=== PATIENT | male | born 1960 | race Two or more races ===

== ENCOUNTER 2024-03-17 22:18 | Emergency (ER) | payer OTHER ==
[~2024-03-17] VITALS: Ht 182.9 cm; Wt 105.0 kg
[2024-03-17] MEDS: ALBUTEROL SULF 2.5 MG/0.5ML(0.5%) NEB SOLN NEB ONE (22:30)
--- NOTE | 2024-03-17 22:30 | ECG ---
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
--- NOTE | 2024-03-17 22:35 | ED.PDOC ---
History of Present Illness HPI Comments 63 y/o M, with a Hx of HTN and obesity, is BIBA for c/o shortness of breath, today. Per EMS report, patient endorses on unprovoked onset of persisting difficulty breathing all day, today, after dealing with a flu for 1x week. He is commented to have been found with a SpO2 of 95%RA and was given 1x DuoNeb bj athing treatment, with positive response, en route. Vitals were otherwise stated to have been normal and within normal limits along with him having an initial blood glucose of 121. At time of assessment, patient also notes being seen at [facility] facility for HTN medication refill inquiry after running out of it, recently, earlier, today. He denies any chest pain, palpitations, dizziness, or other associated symptoms or modifiers at this time. Chief Complaint: Flu like Time Seen by MD: 22:15 Reviewed Notes: Nurses Notes, Buckle Assembler Notes, Medications, Allergies Allergies: Coded Allergies: NO KNOWN ALLERGIES (Unverified , 03/17/24) Information Source: Patient, Emergency Med Personnel Mode of Arrival: EMS Severity: Moderate Timing: Hours Duration: Since onset Prehospital treatment: 12 Lead EKG, Breathing Tx, Time Clock Repairer Past Medical History PAST MEDICAL HISTORY: HTN Past Medical History (Other): obesity Surgical History: Hernia Repair (bilateral hernia mesh repair) Surgical History (Other): left cataract, right hip, left hip Family History Family History: Unknown Social History Smoker: Non-Smoker Alcohol: Denies ETOH Use Drugs: Denies Drug Use Lives In: Home Respiratory: reports: shortness of breath All Other Systems: Reviewed and Negative (negative unless otherwise stated above or in HPI) Physical Exam General Appearance: No Apparent Distress, Obese HEENT: Normal ENT Inspection, Pharynx Normal, TMs Normal Neck: Full Range of Motion, Non-Tender, Normal, Normal Inspection Respiratory: Chest Non-Tender, Lungs Clear, No Accessory Muscle Use, No Respiratory Distress, Normal Breath Sounds Cardiovascular: No Edema, No JVD, No Murmur, No Gallop, Normal Peripheral Pulses, Regular Rate/Rhythm Breast Exam: Deferred Gastrointestinal: No Organomegaly, Non Tender, No Pulsatile Mass, Normal Bowel Sounds, Soft Genitalia: Deferred Pelvic: Deferred Rectal: Deferred Extremities: No calf tenderness, Normal capillary refill, Normal inspection, Normal range of motion, Non-tender, No pedal edema Musculoskeletal : Apperance: Normal Neurologic: Alert, rock crusher II-XII nml as Tested, No Motor Deficits, Normal Affect, Normal Mood, No Sensory Deficits Cerebellar Function: Normal Reflexes: Normal Skin: Dry, Normal Color, Warm Lymphatic: No Adenopathy Was a procedure done? Was a procedure done?: No EKG EKG : Pulse Rate (adult): 86 Urich: Normal Cardiac Rhythm: NSR Block: None Hypertrophy: None ST: Normal Differential Dx Considerations may include: URI, viral, bronchitis, PNA X-Ray, Labs, Meds, VS Vital Signs Date Time Temp Pulse Resp B/P (MAP) Pulse Ox O2 Delivery O2 Flow Rate FiO2 03/17/24 22:35 86 03/17/24 22:30 97.9 85 18 125/97 (106) 95 03/17/24 22:30 20 95 Room Air* 0 21 03/17/24 22:23 86 Current Medications Medications (Trade) Dose Ordered Sig/Radha Route Start Time Stop Time Status Last Admin Albuterol (Ventolin Medneb) 5 mg ONCE ONCE NEB 03/17/24 22:30 03/17/24 22:31 DC 03/17/24 22:30 [place] [id number] Ph: [phone] DIAGNOSTIC IMAGING Diagnostic Imaging Report : [id number] Signed PATIENT: EKTA MIKE ACCT: [id number] UNIT: [id number] : 1960 LOC: ER ROOM / BED: / AGE / SEX: 63 / M ADM STATUS: REG ER SERVICE 27 ORDERING PHYSICIAN: PRINCESS MUJICA MD PROCEDURE(s): CXR1 - CHEST XRAY 1 VIEW REASON: sob ORDER NUMBER(s): [id number], ACCESSION NUMBER(s): [id number] EXAM: XY CHEST XRAY 1 VIEW CLINICAL HISTORY: sob TECHNIQUE: Single AP view of the chest WID: COMPARISON: None FINDINGS: Lines and tubes: None Chest: The heart size and pulmonary vasculature is within normal limits. No pleural effusion, pneumothorax, or consolidation. The osseous structures are grossly intact. Multilevel thoracic spondylosis. IMPRESSION: No acute cardiopulmonary abnormality. ATED BY: IKE ALVAREZ MD DICTATED DATE/TIME: 03/17/242258 SIGNED BY: IKE ALVAREZ MD SIGNED DATE/TIME: 03/17/242258 CC: Patient was given a DuoNeb treatment Time of 1ST Reevaluation: 22:45 Reevaluation 1ST: Unchanged Patient Education/Counseling: Diagnosis, Treatment Family Education/Counseling: No Family Present Departure 1 Departure Time of Disposition: 01:42 Impression: Primary Impression: Viral syndrome Disposition: HOME / SELF CARE / HOMELESS Condition: Stable Written Prescriptions Reassessed patient, vital signs stable. Denies any new symptoms. Patient is able to tolerate PO and ambulate/be mobile at their baseline without concern. Risks and benefits of all medications given or prescribed, if any, discussed. All lab work, imaging and diagnostic studies were reviewed by me. The patient was coun seled extensively on my clinical impression, diagnosis, expected course of the disease, and plan, including their follow-up care. Will discharge patient. Patient instructed to follow up with Primary Care Physician within 24-48 hours. Strict return precautions given for further exacerbation of symptoms or for new symptoms. The patient was given the opportunity to ask questions and all questions were answered by myself and the nursing/tech staff. Patient is in agreement with the care plan. The patient verbally expressed understanding of the discharge instructions, including the reasons to return to the Emergency Department. e-Prescriptions Azithromycin (Zithromax Z-Carlyle) 250 Mg Tab 250 MG PO DAILY, #6 TAB Prov: PRINCESS MUJICA MD 03/18/24 Discharged With: Self Critical Care Note Critical Care Time?: No Stability Stability form required: No Heart Score Heart Score: Heart Score Response (Comments) Value History N/A 0 EKG N/A 0 Age N/A 0 Risk Factors N/A 0 Troponin N/A 0 Total 0 I personally scribed for PRINCESS MUJICA MD ([email or web address]) on 03/17/24 at 22:35. Electronically submitted by Shalom Barber ([email or web address]). PRINCESS MUJICA MD Mar 17, 2024 22:35
--- NOTE | 2024-03-17 23:01 | DVH ---
EXAM: XY CHEST XRAY 1 VIEW CLINICAL HISTORY: sob TECHNIQUE: Single AP view of the chest WID: COMPARISON: None FINDINGS: Lines and tubes: None Chest: The heart size and pulmonary vasculature is within normal limits. No pleural effusion, pneumothorax, or consolidation. The osseous structures are grossly intact. Multilevel thoracic spondylosis. IMPRESSION: No acute cardiopulmonary abnormality.
[2024-03-18] MEDS ORDERED: AZITTAB PO (01:46)
[2024-03-18 05:30] VITALS: BP 122/88; PULSE 88; RESP 19; TEMP 98; O2SAT 98
== END 2024-03-18 06:31 | disposition home or self-care (01) ==
LOC: ER 22:18 → EDBD 22:18 → ER 03-18 06:31
DX: B34.9 Viral infection, unspecified (principal); I10 Essential (primary) hypertension; Z98.890 Other specified postprocedural states
CPT/HCPCS: 71045; 93005; 94640